=== PATIENT | male | born 2000 | race Caucasian/White ===

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

== ENCOUNTER → 2023-04-20 15:24 | Outpatient (BNVA) | payer MEDICAID, SELFPAY | PROVIDERS: PCP Nurse Practitioner; Visit Provider Nurse Practitioner | DX: F81.9 Developmental disorder of scholastic skills, unspecified (principal); I95.9 Hypotension, unspecified | CPT/HCPCS: 80053; 85025 ==

== ENCOUNTER → 2023-07-22 11:06 | Outpatient (BNVA) | payer MEDICAID, SELFPAY | PROVIDERS: PCP Nurse Practitioner; Visit Provider Nurse Practitioner | DX: Z79.891 Long term (current) use of opiate analgesic (principal); F84.0 Autistic disorder; F90.2 Attention-deficit hyperactivity disorder, combined type; E55.9 Vitamin D deficiency, unspecified | CPT/HCPCS: 80053; 80061; 82306; 83036; 85025 ==

== ENCOUNTER 2023-12-06 21:41 | Emergency (ER) | payer MEDICAID, SELFPAY ==
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
[2023-12-06 22:01] VITALS: RESP 16
--- NOTE | 2023-12-07 00:15 | PC.NURSE ---
unable to obtain vitals due to pt aggression. caregivers educated on risk of not taking vitals and understood risk and did not want them to be obtained due to possible violent outburst.
--- NOTE | 2023-12-07 00:18 | W.ED.EXTPRO ---
HPI - Extremity Problem General: Chief complaint: Extremity Injury, Upper Stated complaint: Left Elbow Injury Time Seen by Provider: 12/06/23 21:54 Source: family Mode of arrival: ambulatory Limitations: physical limitation (ASD) History of Present Illness: Patient is a 23-year-old male who is brought into the emergency department by guardians for left elbow injury prior to arrival. Patient reportedly bumped his elbow on the wall, has been refusing to straighten it due to pain. Swelling also noted over the olecranon. Patient is reportedly nonverbal autistic, does not provide any history. They state that they have not used ice as he has pica. No Tylenol or ibuprofen has been used yet. Vitals were unable to be obtained due to his physical limitation and aggressive behavior. MD Complaint: joint swelling and joint pain Onset (ago): hour(s) Location: left and elbow Associated symptoms: Deny chest pain or fever(s) Related Data Home Medications Medication Instructions Recorded Confirmed escitalopram oxalate 20 mg tablet 20 mg PO DAILY 08/27/21 12/01/23 guanfacine 4 mg tablet,extended 4 mg PO DAILY 08/27/21 12/01/23 release 24 hr olanzapine 10 mg disintegrating 10 mg PO TID PRN 04/08/22 12/01/23 tablet quetiapine 100 mg tablet 100 mg PO BID 04/08/22 12/01/23 paliperidone palmitate 234 mg/1.5 234 mg IM Q21D 08/20/22 12/01/23 mL intramuscular syringe (Invega Sustenna) Previous Rx's Medication Instructions Recorded benztropine 1 mg tablet 1 mg PO BID PRN spasms #60 tabs 08/31/21 quetiapine 400 mg tablet 400 mg PO BEDTIME #30 tabs 08/31/21 food supplemt, lactose-reduced 1 ea PO DAILY #5,688 mL 06/02/22 0.08 gram-1.5 kcal/mL oral liquid (Ensure Plus High Protein) calcium carbonate 675 mg-magnesium 1 tab PO .2 times day PRN nausea 06/04/22 hydroxide 135 mg chewable tablet #30 tabs (Rolaids Extra Strength) polyethylene glycol 3350 17 17 g PO DAILY PRN Constipation 02/10/23 gram/dose oral powder (Miralax) #510 grams acetaminophen 325 mg tablet 650 mg (2 x 325 mg) PO Q4H PRN 03/09/23 (Tylenol) Pain #30 tabs bacitracin 500 unit/gram topical 1 applic topical BID PRN skin 04/13/23 ointment irritation #14.2 grams diphenhydramine HCl 12.5 mg/5 mL 12.5 mg (5 mL) PO TID PRN itching 04/23/23 oral elixir #120 mL Cleansing wipe, pullups, gloves #1 ea 05/13/23 magnesium hydroxide 400 mg/5 mL 30 ml PO BID constipation #355 mL 07/01/23 oral suspension (Milk of Magnesia) T4526 medium pull up #186 ea 07/31/23 loratadine 10 mg tablet 10 mg PO DAILY #90 tabs 09/11/23 magnesium oxide 400 mg (241.3 mg 400 mg PO DAILY #30 tabs 09/11/23 magnesium) tablet (MagOx) melatonin 5 mg capsule 10 mg (2 x 5 mg) PO .hs #60 caps 10/20/23 cholecalciferol (vitamin D3) 125 125 mcg PO DAILY #30 caps 12/03/23 mcg (5,000 unit) capsule Allergies Allergy/AdvReac Type Severity Reaction Status Date / Time codeine Allergy ALGY-Hives Verified 12/06/23 22:05 red dye Allergy Unknown Verified 12/06/23 22:05 Review of Systems General: Reports: 10 or more systems reviewed and unremarkable except in HPI and below Const: Denies: fever(s) Card: Denies: chest pain Resp: Denies: dyspnea, productive cough or wheezing GI: Denies: abdominal pain, vomiting or diarrhea Musc: Reports: joint pain and joint swelling PFSH ED PFSH: Medical History Incontinence without sensory awareness BMI less than 19,adult Constipation, slow transit Rhinitis, allergic Compulsive self-biting behavior Autism Surgical History No pertinent past surgical history Family History Denies family history of Cancer Social History Smoking and tobacco/nicotine status: never used tobacco/nicotine Second hand smoke exposure: No Alcohol intake: never Substance/Drug Use: never Adopted: No Caregiver/support person: Yes Lives independently: No Household members: caregiver Housing: Assisted Living Facility Marital status: Single Number of children: 0 Highest education level completed: 12th Grade, No Diploma service: No Current occupational status: disabled Pets and animals: No Do you think of yourself as: Straight/Heterosexual Current gender identity: Male Physical Exam Const: OTHER: Nonverbal autistic, appears nontoxic and in no acute distress HENMT: COMMON NORMALS: normocephalic and atraumatic HEAD & SCALP: normocephalic and atraumatic Neck/C-Spine: COMMON NORMALS: full ROM, supple and no meningeal signs Extremity: NARRATIVE EXTREMITY EXAM: Refuses to participate in examination, his left olecranon is notably swollen. Full range of motion is noted while in the room, does not appear to cause the patient any pain. Neuro: COMMON NORMALS: moves all extremities, no focal motor deficits and no sensory deficits noted MENINGEAL SIGNS: Yes no meningeal signs Skin: COMMON NORMALS: no rashes or lesions noted GENERAL SKIN EXAM: no rashes or lesions noted Course Vital Signs: Vital signs: Vital Signs Respiratory Rate 16 12/06/23 22:01 Oxygen Delivery Me thod Room Air 12/06/23 22:01 MDM - Extremity (Nontraumatic) Medical Decision Making Patient history of ASD nonverbal, his vitals were unable to be obtained today. During x-ray interpretation, patient was required to wait in the car due to his violent behavior and the x-ray was read as negative. He was examined afterwards, there was noted to be some swelling to the left olecranon, this could represent a contusion but also may be a bursitis. No fever or other symptoms were reported, and he did have full range of motion of the left arm. He will be discharged home with instructions to alternate Tylenol and ibuprofen. Guardian said that they cannot do ice because he will eat it due to his history of pica. Return precautions given. Lab Data Radiology Impressions Elbow X-Ray 12/06/23 21:48 IMPRESSION: No acute findings. All radiology interpretation(s) finalized by discharge Discharge Plan Discharge Patient Disposition: Home Clinical Impression: Contusion of elbow Condition: Stable Prescriptions: No Action olanzapine 10 mg tablet,disintegrating 10 mg PO TID PRN Invega Sustenna 234 mg/1.5 mL syringe 234 mg IM Q21D diphenhydramine HCl 12.5 mg/5 mL elixir 12.5 mg PO TID PRN (Reason: itching) Qty: 120 5RF (DME) T4526 medium pull up See Rx Instructions .Route .MEDSUPPLY Qty: 186 11RF Rx Instructions: As directed loratadine 10 mg tablet 10 mg PO DAILY Qty: 90 1RF magnesium oxide [MagOx] 400 mg (241.3 mg magnesium) tablet 400 mg PO DAILY Qty: 30 5RF Hold Instructions: Loose stool melatonin 5 mg capsule 10 mg PO .hs Qty: 60 5RF Miralax 17 gram/dose powder 17 g PO DAILY PRN (Reason: Constipation) Qty: 510 5RF acetaminophen [Tylenol] 325 mg tablet 650 mg PO Q4H PRN (Reason: Pain) Qty: 30 2RF (DME) Cleansing wipe, pullups, gloves See Rx Instructions .Route .MEDSUPPLY Qty: 1 11RF Rx Instructions: use as directed and prn 99 months magnesium hydroxide [Milk of Magnesia] 400 mg/5 mL suspension 30 ml PO BID Qty: 355 0RF Rx Instructions: use 30mL 2 times day until stooling then stop Ensure Plus High Protein 0.08 gram-1.5 kcal/mL liquid 1 ea PO DAILY Qty: 5688 6RF Rolaids Extra Strength 675-135 mg tablet,chewable 1 tab PO .2 times day PRN (Reason: nausea ) Qty: 30 0RF bacitracin 500 unit/gram ointment 1 applic topical BID PRN (Reason: skin irritation) Qty: 14.2 0RF cholecalciferol (vitamin D3) 125 mcg (5,000 unit) capsule 125 mcg PO DAILY Qty: 30 5RF escitalopram oxalate 20 mg tablet 20 mg PO DAILY guanfacine 4 mg tablet extended release 24 hr 4 mg PO DAILY quetiapine 400 mg tablet 400 mg PO BEDTIME Qty: 30 1RF benztropine 1 mg tablet 1 mg PO BID PRN (Reason: spasms) Qty: 60 0RF quetiapine 100 mg tablet 100 mg PO BID Discharge Orders: Discharge ED (Routine); Ordered 12/07/23 Ordered By: Hakeem Wellington Referrals: Rachel Cordon, NETWORK SYSTEMS OPERATOR-C [Primary Care Provider] - Patient Instructions: Contusion in Adults (ED) Activity Restrictions/Additional Instructions: Ice to the area. Tylenol and ibuprofen. Follow-up with primary care. Coding Level of Care Code ED Database Consultant for Deyanira Bernal
== END 2023-12-07 00:19 | disposition home or self-care (01) ==
PROVIDERS: Emergency Provider Physician Assistant; PCP Nurse Practitioner
DX: S50.02XA Contusion of left elbow, initial encounter (principal); W22.01XA Walked into wall, initial encounter
CPT/HCPCS: 73070; 99283

== ENCOUNTER 2024-02-23 12:58 | Emergency (ER) | payer MEDICAID, SELFPAY ==
[2024-02-23 13:07] VITALS: RESP 14; BMI 21.4
--- NOTE | 2024-02-23 14:16 | XR_ITS ---
WS: [id number] Right knee, 3 views, 02/23/2024 Clinical Data: swelling/ecchymosis/fever Comparison: None. Findings: No fractures or dislocations are seen. There is minimal narrowing of the medial joint compartment. T he patella is intact. There is soft tissue swelling in the supra patellar bursa and over the anterior aspect of the right patella. XR/XR knee RT 3V* [id number] Impression: 1. Minimal narrowing of medial joint compartment. 2. Anterior soft tissue swelling. Kellgren-Giancarlo Classification: grade 1 (doubtful): doubtful joint space narr owing and possible osteophytic lipping
--- NOTE | 2024-02-23 14:17 | ED_ITS ---
HPI - Extremity Problem 2 General: Chief complaint: Extremity Injury, Lower Stated complaint: knee pain Time Seen by Provider: 02/23/24 13:59 Source: family Mode of arrival: ambulatory Limitations: other (severe mental retardation) History of Present Illness: Patient is a 23-year-old male with history of severe mental retardation, autism nonverbal who presents to the emergency department with family complaining of severe right knee swelling and fevers. This patient will not allow vitals to be obtained in triage, he is very aggressive. Family had stated they were at primary care told to come here due to the fever and swelling. He has injuries to both hands as well, family states he self injures. Family stating that he has been signing to them that he is in pain. Very limited physical examination prior to sedation at this time due to his aggressiveness, review of systems unobtainable due to mental capacity. Parents state that his knee symptoms have been going on for some time, there is also some bruising reported to his left knee. MD Complaint: joint swelling and joint pain Pain Consistency: constant Location: left, right and knee (Right worse than left) Related Data Home Medications Medication Instructions Recorded Confirmed escitalopram oxalate 20 mg tablet 20 mg PO DAILY 08/27/21 02/23/24 guanfacine 4 mg tablet,extended 4 mg PO DAILY 08/27/21 02/23/24 release 24 hr olanzapine 10 mg disintegrating 10 mg PO TID PRN aggitation 04/08/22 02/23/24 tablet quetiapine 100 mg tablet 100 mg PO BID 04/08/22 02/23/24 paliperidone palmitate 234 mg/1.5 156 mg IM Q21D 12/23/23 02/23/24 mL intramuscular syringe (Invega Sustenna) melatonin 5 mg capsule 5 mg PO BEDTIME 02/23/24 02/23/24 metformin 500 mg tablet,extended 1,000 mg PO QPM 02/23/24 02/23/24 release 24 hr trazodone 50 mg tablet 50 mg PO BEDTIME 02/23/24 02/23/24 Previous Rx's Medication Instructions Recorded benztropine 1 mg tablet 1 mg PO BID PRN spasms #60 tabs 08/31/21 quetiapine 400 mg tablet 400 mg PO BEDTIME #30 tabs 08/31/21 calcium carbonate 675 mg-magnesium 1 tab PO .2 times day PRN nausea 06/04/22 hydroxide 135 mg chewable tablet #30 tabs (Rolaids Extra Strength) bacitracin 500 unit/gram topical 1 applic topical BID PRN skin 04/13/23 ointment irritation #14.2 grams diphenhydramine HCl 12.5 mg/5 mL 12.5 mg (5 mL) PO TID PRN itching 04/23/23 oral elixir #120 mL Cleansing wipe, pullups, gloves #1 ea 05/13/23 magnesium hydroxide 400 mg/5 mL 30 ml PO BID constipation #355 mL 07/01/23 oral suspension (Milk of Magnesia) T4526 medium pull up #186 ea 07/31/23 loratadine 10 mg tablet 10 mg PO DAILY #90 tabs 09/11/23 magnesium oxide 400 mg (241.3 mg 400 mg PO DAILY #30 tabs 09/11/23 magnesium) tablet (MagOx) cholecalciferol (vitamin D3) 125 125 mcg PO DAILY #30 caps 12/03/23 mcg (5,000 unit) capsule polyethylene glycol 3350 17 17 g PO DAILY PRN Constipation 01/14/24 gram/dose oral powder (Miralax) #510 grams acetaminophen 325 mg tablet 650 mg (2 x 325 mg) PO Q4H PRN 02/05/24 (Tylenol) Pain #30 tabs ibuprofen 800 mg tablet 800 mg PO Q8H PRN pain #30 tabs 02/23/24 Allergies Allergy/AdvReac Type Severity Reaction Status Date / Time codeine Allergy ALGY-Hives Verified 02/23/24 13:14 red dye Allergy Unknown Verified 02/23/24 13:14 Review of Systems 2 General: Reports: ROS unobtainable due to medical condition PFSH ED 2 PFSH: Medical History Incontinence without sensory awareness BMI less than 19,adult Constipation, slow transit Rhinitis, allergic Compulsive self-biting behavior Autism Surgical History No pertinent past surgical history Family History Denies family history of Cancer Social History Smoking and tobacco/nicotine status: never used tobacco/nicotine Second hand smoke exposure: No Alcohol intake: never Substance/Drug Use: never Adopted: No Caregiver/support person: Yes Lives independently: No Household members: caregiver Housing: Assisted Living Facility Marital status: Single Number of children: 0 Highest education level completed: 12th Grade, No Diploma service: No Current occupational status: disabled Pets and animals: No Do you think of yourself as: Straight/Heterosexual Current gender identity: Male Physical Exam 2 Const: EXAM LIMITATIONS: behavioral limitations OTHER: Physical exam severely limited prior to sedation due to patient's behavioral history and noncompliance with examination. Vitals unable to be obtained. This patient has noted to be walking around vertical flow with no obvious limp to his gait. Resp: COMMON NORMALS: normal respiratory effort, No retractions, No use of accessory muscles and clear to auscultation bilaterally AUSCULTATION: clear to auscultation bilaterally Cardio: COMMON NORMALS: regular rhythm RATE: tachycardic RHYTHM: regular rhythm Extremity: NARRATIVE EXTREMITY EXAM: Visual examination of both knees showing severe swelling to the right knee with ecchymosis, ecchymosis and swelling to a lesser degree to the left knee. There is also ecchymosis to the left knee. Bite wounds self-injurious to bilateral hands. After sedation, there is no warmth of the right knee compared to the left. No red streaking. There are surrounding areas of different stages ecchymosis to both knees. To both hands, also surrounding areas of ecchymosis indicating self-injurious behavior. Neuro: COMMON NORMALS: moves all extremities and no focal motor deficits Course 2 Vital Signs: Vital signs: Vital Signs Pulse Rate 112 H 02/23/24 16:21 Respiratory Rate 20 H 02/23/24 15:34 Blood Pressure 135/98 02/23/24 16:21 Pulse Oximetry 99 02/23/24 16:21 Oxygen Delivery Me thod Room Air 02/23/24 14:52 MDM - Extremity (Nontraumatic) Medical Decision Making This patient history of severe mental retardation and autism nonverbal, brought in by family for swelling to right knee. Exam was severely limited, initially he was in vertical flow and could only visually examine the knee as patient was aggressive and noncompliant. Right knee was significantly swollen and ecchymotic, though there was no redness noted. Patient did not have a fever here, as we had to do conscious sedation for proper examination and labs. X-ray showing quite a bit of soft tissue edema, no concerns for any intra-articular infection or fractures. His lab work showing normal white count, mild decrease in hemoglobin, normal ESR, mildly increased CRP. Knee was not hot to the touch, patient noted to be ambulatory on the knee. I do not feel that this is septic joint at this time, Dr. Dunlap assisted in examination and workup of this patient and agrees. Patient has history of extensive self-injurious behavior and left knee looks very similar to the right, felt to be early traumatic hematoma. Thoroughly discussed importance of following up and trying to combat this behavior with the patient, as this could make it worse and eventually cause the joint to be septic. Encouraged parents to watch for any fevers, vomiting, inability to bear weight, redness or warmth of the joint. Parents endorsed understanding and will follow-up with primary care tomorrow or the next day. Ibuprofen sent at the request of prescription, he will have knee wrapped in Gideon bandage to help with swelling. Lab Data 02/23/24 14:50 Radiology Impressions Knee X-Ray 02/23/24 14:16 Impression: 1. Minimal narrowing of medial joint compartment. 2. Anterior soft tissue swelling. Kellgren-Giancarlo Classification: grade 1 (doubtful): doubtful joint space narrowing and possible osteophytic lipping Laboratory Results WBC 9.15 10^3/uL (3.29-11.43) 02/23/24 14:50 RBC 3.52 10^6/uL (3.85-5.65) L 02/23/24 14:50 Hgb 11.00 g/dL (11.27-16.99) L 02/23/24 14:50 Hct 33.0 % (37-53) L 02/23/24 14:50 MCV 93.8 fl (82-101) 02/23/24 14:50 MCH 31.3 pg (27-33) 02/23/24 14:50 MCHC 33.3 g/dL (30-55) 02/23/24 14:50 RDW 12.6 % (12.1-15.1) 02/23/24 14:50 Plt Count 240 10^3/cmm (157-399) 02/23/24 14:50 MPV 9.9 fL (7.4-10.4) 02/23/24 14:50 Neut % (Auto) 73.9 % 02/23/24 14:50 Lymph % (Auto) 16.3 % 02/23/24 14:50 Hardy % (Auto) 8.3 % 02/23/24 14:50 Eos % (Auto) 0.9 % 02/23/24 14:50 Baso % (Auto) 0.3 % 02/23/24 14:50 Neut # (Auto) 6.76 10^3/uL (1.8-7.7) 02/23/24 14:50 Lymph # (Auto) 1.5 10^3/uL (0.8-4.8) 02/23/24 14:50 Hardy # (Auto) 0.8 10^3/uL (0.2-0.9) 02/23/24 14:50 Eos # (Auto) 0.1 10^3/uL (0.0-0.8) 02/23/24 14:50 Baso # (Auto) 0.0 10^3/uL (0.0-0.1) 02/23/24 14:50 Nucleated RBC % (auto) 0 % 02/23/24 14:50 Nucleated RBCs # 0.0 /100WBC 02/23/24 14:50 ESR 4 mm/hr (0-10) 02/23/24 14:50 C-Reactive Protein 67.7 mg/L (0.0-4.9) H 02/23/24 14:50 All radiology interpretation(s) finalized by discharge Discharge Plan Discharge Patient Disposition: Home Clinical Impression: Traumatic hematoma of right knee, Self-injurious behavior Condition: Stable Prescriptions: New ibuprofen 800 mg tablet 800 mg PO Q8H PRN (Reason: pain) Qty: 30 0RF No Action olanzapine 10 mg tablet,disintegrating 10 mg PO TID PRN (Reason: aggitation) diphenhydramine HCl 12.5 mg/5 mL elixir 12.5 mg PO TID PRN (Reason: itching) Qty: 120 5RF (DME) T4526 medium pull up See Rx Instructions .Route .MEDSUPPLY Qty: 186 11RF Rx Instructions: As directed loratadine 10 mg tablet 10 mg PO DAILY Qty: 90 1RF magnesium oxide [MagOx] 400 mg (241.3 mg magnesium) tablet 400 mg PO DAILY Qty: 30 5RF Hold Instructions: Loose stool Invega Sustenna 234 mg/1.5 mL syringe 156 mg IM Q21D (DME) Cleansing wipe, pullups, gloves See Rx Instructions .Route .MEDSUPPLY Qty: 1 11RF Rx Instructions: use as directed and prn 99 months magnesium hydroxide [Milk of Magnesia] 400 mg/5 mL suspension 30 ml PO BID Qty: 355 0RF Rx Instructions: use 30mL 2 times day until stooling then stop Miralax 17 gram/dose powder 17 g PO DAILY PRN (Reason: Constipation) Qty: 510 5RF acetaminophen [Tylenol] 325 mg tablet 650 mg PO Q4H PRN (Reason: Pain) Qty: 30 2RF Rolaids Extra Strength 675-135 mg tablet,chewable 1 tab PO .2 times day PRN (Reason: nausea ) Qty: 30 0RF bacitracin 500 unit/gram ointment 1 applic topical BID PRN (Reason: skin irritation) Qty: 14.2 0RF cholecalciferol (vitamin D3) 125 mcg (5,000 unit) capsule 125 mcg PO DAILY Qty: 30 5RF escitalopram oxalate 20 mg tablet 20 mg PO DAILY guanfacine 4 mg tablet extended release 24 hr 4 mg PO DAILY quetiapine 400 mg tablet 400 mg PO BEDTIME Qty: 30 1RF benztropine 1 mg tablet 1 mg PO BID PRN (Reason: spasms) Qty: 60 0RF quetiapine 100 mg tablet 100 mg PO BID metformin 500 mg tablet extended release 24 hr 1,000 mg PO QPM melatonin 5 mg capsule 5 mg PO BEDTIME trazodone 50 mg Tablet 50 mg PO BEDTIME Discharge Orders: Discharge ED (Routine); Ordered 02/23/24 Ordered By: Hakeem Wellington Referrals: Rachel Cordon FNP-C [Primary Care Provider] - Patient Instructions: Hematoma (ED) Activity Restrictions/Additional Instructions: Ibuprofen and Tylenol. Ice. Elevate the extremity, Gideon wrap for compression. Follow-up closely with primary care in the next couple days. Please return with any high fever, vomiting, inability to bear weight, or other systemic signs of illness. Coding Level of Care Code ED Junior Electrical Engineer for Deyanira Bernal
--- NOTE | 2024-02-23 14:37 | PC.NURSE ---
spoke with [facility] from [facility] around 1425 and she stated that it was okay to give pt what medications were necessary for treatment.
[2024-02-23] MEDS: ketamine 100 mg/mL Inj 5 mL 310.3 MG IM (14:51)
--- NOTE | 2024-02-23 14:51 | PC.NURSE ---
this nurse, ED charge, Bindery Manager, x2 security, x2 hydraulic technician, and x1 ER nurse present for Ketamine Admin. Guardian present gave permission, State gave verbal permission.
--- NOTE | 2024-02-23 14:51 | PC.PHAR ---
Took pts' med list over the phone with staff at [facility] so the pt would not be further aggravated by my entering for med list from resources representative. Pt has taken his morning medications.
[2024-02-23 14:52] VITALS: BP 148/83; PULSE 123; RESP 18; O2SAT 99
[2024-02-23 14:58] LABS: Basophils % 0.3 %; Eosinophils # 0.1 10^3/uL (0.0-0.8); Eosinophils % 0.9 %; Lymphocytes # 1.5 10^3/uL (0.8-4.8); Lymphocytes % 16.3 %; Mean Corpuscular HGB Conc 33.3 g/dL (30-55); Mean Corpuscular Hemoglobin 31.3 pg (27-33); Mean Corpuscular Volume 93.8 fl (82-101); Mean Platelet Volume 9.9 fL (7.4-10.4); Monocytes # 0.8 10^3/uL (0.2-0.9); Monocytes % 8.3 %; Neutrophils # 6.76 10^3/uL (1.8-7.7); Neutrophils % 73.9 %; Nucleated Red Blood Cells % 0 %; Platelet Count 240 10^3/cmm (157-399); Red Blood Count 3.52 10^6/uL (3.85-5.65); Red Cell Distribution Width 12.6 % (12.1-15.1); White Blood Count 9.15 10^3/uL (3.29-11.43)
[2024-02-23 15:00] LABS: Erythrocyte Sedimentation Rate 4 mm/hr (0-10)
--- NOTE | 2024-02-23 15:00 | PC.NURSE ---
suction available at bedside
[2024-02-23 15:14] LABS: C Reactive Protein 67.7 mg/L (0.0-4.9)
[2024-02-23 15:34] VITALS: BP 135/82; PULSE 111; RESP 20; O2SAT 100
[2024-02-23 16:21] VITALS: BP 135/98; PULSE 112; O2SAT 99
== END 2024-02-23 16:22 | disposition home or self-care (01) ==
PROVIDERS: Emergency Medicine; Emergency Provider Physician Assistant; PCP Nurse Practitioner
DX: S80.01XA Contusion of right knee, initial encounter (principal); Z79.84 Long term (current) use of oral hypoglycemic drugs; X58.XXXA Exposure to other specified factors, initial encounter
CPT/HCPCS: 36415; 73562; 85025; 85651; 86140; 99284; J3490

== ENCOUNTER → 2024-11-16 09:10 | Outpatient (BNVA) | payer MEDICAID, SELFPAY | PROVIDERS: PCP Nurse Practitioner; Visit Provider Nurse Practitioner | DX: E55.9 Vitamin D deficiency, unspecified (principal); F84.0 Autistic disorder | CPT/HCPCS: 80053; 80061; 82306; 84443; 85025 ==